=== PATIENT | female | born 1945 | race Two or more races ===

== ENCOUNTER 2017-07-24 13:45 | Emergency (ER) | payer MEDICARE ==
[2017-07-24 14:49] LABS: ADD MAN DIFF? NO
[2017-07-24] MEDS: IV NORMAL SALINE 500ML BAG 500 ML IV ×3 (14:49→17:22)
[2017-07-24 14:53] LABS: BASO % 0 % (0-3); EOS % 1 % (0-3); HEMATOCRIT 38.3 % (36.0-47.0); LYMPH # 1.3 x10^3/uL (1.0-4.8); LYMPH % 14 % (24-48); MEAN CORPUSCULAR HEMOGLOBIN 30 pg (25-35); MEAN CORPUSCULAR HGB CONC 34 g/dL (31-37); MEAN CORPUSCULAR VOLUME 88 fL (79-100); MONO # 0.6 x10^3/uL (0.0-1.1); MONO % 7 % (0-9); NEUT # 7.1 x10^3uL (1.8-7.7); NEUT % 78 % (31-73); PLATELET COUNT 318 x10^3/uL (140-400); RED BLOOD COUNT 4.38 x10^6/uL (3.50-5.40); WHITE BLOOD COUNT 9.1 x10^3/uL (4.0-11.0)
[2017-07-24 15:11] LABS: ANION GAP 10 (6-14); BLOOD UREA NITROGEN 23 mg/dL (7-20); CALCIUM 9.3 mg/dL (8.5-10.1); CARBON DIOXIDE 29 mmol/L (21-32); CHLORIDE 98 mmol/L (98-107); CREATININE 1.3 mg/dL (0.6-1.0); GFR 40.5; GLUCOSE 109 mg/dL (70-99); SODIUM 137 mmol/L (136-145)
[2017-07-24 15:12] LABS: POTASSIUM 2.7 mmol/L (3.5-5.1)
[2017-07-24 15:15] LABS: TROPONINI < 0.017 ng/mL (0.000-0.055)
[2017-07-24 15:18] LABS: D-DIMER 0.35 ug/mlFEU (0.00-0.50); NT-PRO BNP 23 pg/mL (0-124)
[2017-07-24 15:19] LABS: THYROID STIM HORMONE (TSH) 4.444 uIU/mL (0.358-3.74)
[2017-07-24 15:40] LABS: BILIRUBIN,URINE NEGATIVE (NEG); CLARITY,URINE CLEAR; COLOR,URINE YELLOW; GLUCOSE,URINE NEGATIVE (NEG); NITRITE,URINE NEGATIVE (NEG); PROTEIN,URINE NEGATIVE (NEG-TRACE); UROBILINOGEN,URINE 0.2 mg/dL (0.2 mg/dL)
[2017-07-24] MEDS: POTASSIUM CHLORIDE 20 MEQ TABLET.ER. PO ×2 (15:44→17:24)
[2017-07-24 16:14] LABS: BACTERIA,URINE 0 /HPF (0-FEW); RBC,URINE OCC /HPF (0-2); SQUAMOUS EPITHELIAL CELL,UR FEW /LPF; WBC,URINE OCC /HPF (0-4)
[2017-07-24 16:49] LABS: FREE T4 1.21 ng/dL (0.76-1.46)
[2017-07-24 18:11] LABS: AGAP ISTAT 17 mmol/L (6-14); BUN ISTAT 17 mg/dL (8-26); CHLORIDE ISTAT 104 mmol/L (98-110); CREATININE ISTAT 1.1 mg/dL (0.5-1.4); GLUCOSE ISTAT 100 mg/dL (70-99); HEMATOCRIT ISTAT 36 % (36-40); HEMOGLOBIN ISTAT 12.2 g/dL (12-15); ION CA ISTAT 1.11 mmol/L (1.13-1.32); POTASSIUM ISTAT 3.3 mmol/L (3.5-5.0); SODIUM ISTAT 141 mmol/L (135-145); TOT CO2 ISTAT 25 mmol/L (23-32)
== END 2017-07-24 18:45 | disposition home or self-care (01) ==
LOC: ER 13:45
DX: R06.00 Dyspnea, unspecified (principal); R53.1 Weakness
CPT/HCPCS: 36415; 71045; 80047; 80048; 81001; 83880; 84439; 84443; 84484; 85025; 85379; 93005; 99285-25; J7040

== ENCOUNTER 2017-08-04 10:50 | Emergency (ER) | payer SELFPAY, MEDICARE ==
[2017-08-04 11:23] LABS: BILIRUBIN,URINE NEGATIVE (NEG); CLARITY,URINE CLEAR; COLOR,URINE YELLOW; GLUCOSE,URINE NEGATIVE (NEG); NITRITE,URINE NEGATIVE (NEG); PH,URINE 7.5; PROTEIN,URINE NEGATIVE (NEG-TRACE); UROBILINOGEN,URINE 0.2 mg/dL (0.2 mg/dL)
[2017-08-04 11:34] LABS: BACTERIA,URINE 0 /HPF (0-FEW); RBC,URINE 0 /HPF (0-2); SQUAMOUS EPITHELIAL CELL,UR OCC /LPF
[2017-08-04] MEDS: IV NORMAL SALINE 1000ML BAG 1,000 ML IV (12:03)
[2017-08-04 12:11] LABS: ADD MAN DIFF? NO
[2017-08-04 12:12] LABS: BASO % 0 % (0-3); EOS # 0.1 x10^3/uL (0.0-0.7); EOS % 1 % (0-3); HEMOGLOBIN 12.7 g/dL (12.0-15.5); LYMPH # 1.1 x10^3/uL (1.0-4.8); LYMPH % 11 % (24-48); MEAN CORPUSCULAR HEMOGLOBIN 30 pg (25-35); MEAN CORPUSCULAR HGB CONC 34 g/dL (31-37); MEAN CORPUSCULAR VOLUME 88 fL (79-100); MONO # 0.6 x10^3/uL (0.0-1.1); MONO % 6 % (0-9); NEUT % 82 % (31-73); PLATELET COUNT 346 x10^3/uL (140-400); RED BLOOD COUNT 4.22 x10^6/uL (3.50-5.40); RED CELL DISTRIBUTION WIDTH 14.1 % (11.5-14.5); WHITE BLOOD COUNT 9.8 x10^3/uL (4.0-11.0)
[2017-08-04 12:21] LABS: PROTHROMBIN TIME PATIENT 12.8 SEC (11.7-14.0)
[2017-08-04 12:28] LABS: ANION GAP 8 (6-14); BLOOD UREA NITROGEN 19 mg/dL (7-20); BUN/CREATININE RATIO 19 (6-20); CALCIUM 9.7 mg/dL (8.5-10.1); CARBON DIOXIDE 30 mmol/L (21-32); CHLORIDE 101 mmol/L (98-107); GFR 54.8; GLUCOSE 117 mg/dL (70-99); POTASSIUM 3.7 mmol/L (3.5-5.1); SODIUM 139 mmol/L (136-145)
[2017-08-04 12:34] LABS: ALBUMIN 3.7 g/dL (3.4-5.0); ALBUMIN/GLOBULIN RATIO 0.8 (1.0-1.7); ALK PHOS 93 U/L (46-116); ALT (SGPT) 19 U/L (14-59); AST (SGOT) 18 U/L (15-37); LIPASE 324 U/L (73-393); MAGNESIUM 2.2 mg/dL (1.8-2.4); TOTAL BILIRUBIN 0.3 mg/dL (0.2-1.0); TOTAL PROTEIN 8.4 g/dL (6.4-8.2)
[2017-08-04 12:36] LABS: TROPONINI < 0.017 ng/mL (0.000-0.055)
[2017-08-04 12:43] LABS: THYROID STIM HORMONE (TSH) 4.484 uIU/mL (0.358-3.74)
[2017-08-04 12:44] LABS: NT-PRO BNP 143 pg/mL (0-124)
[2017-08-04 12:44] LABS: CKMB MASS < 0.5 ng/mL (0.0-3.6); CREATINE KINASE 53 U/L (26-192)
[2017-08-04 13:29] LABS: BARBITURATES NEG (NEG); BENZODIAZEPINES NEG (NEG); CANNABINOIDS NEG (NEG); COCAINE NEG (NEG); METHADONE NEG (NEG); OPIATES NEG (NEG); PHENCYCLIDINE NEG (NEG)
[2017-08-04 13:31] LABS: AMPHETAMINE/METHAMPHETAMINE NEG (NEG); ETHANOL, URINE NEG (NEG)
== END 2017-08-04 14:06 | disposition home or self-care (01) ==
LOC: ER 14:06
DX: R53.1 Weakness (principal); N39.0 Urinary tract infection, site not specified; I10 Essential (primary) hypertension
CPT/HCPCS: 36415; 70450; 71045; 80053; 80307; 81001; 82553; 83690; 83735; 83880; 84443; 84484; 85025; 85610; 87086; 93005; 99285-25; J7030